=== PATIENT | female | born 1945 | race Caucasian/White ===

== ENCOUNTER 2020-03-18 18:03 | Emergency (ER) | payer MEDICARE, OTHER ==
[2020-03-18 19:18] LABS: BASOPHIL 0.5 % (0-2); EOSINOPHIL 2.3 % (0-7); HCT 37.7 % (37.0-47.0); HGB 12.1 g/dl (12.5-16.0); LYMPHOCYTE 22.3 % (15-48); MCH 29.9 pg (25.0-31.0); MCHC 32.1 g/dL (32.0-36.0); MCV 93.1 fL (78.0-100.0); MONOCYTE 9.6 % (0-12); MPV 10.2 fL (6.0-9.5); NRBC 0; PLT 235 K/uL (150-400); RBC 4.05 M/uL (4.20-5.40); WBC 6.6 K/uL (4.0-10.5)
[2020-03-18 19:35] LABS: ALBUMIN 3.5 g/dL (3.4-5.0); BILIRUBIN - TOTAL 0.3 mg/dL (0.2-1.0); BUN/CREAT RATIO (CALC) 24.2 RATIO; CREATININE 2.89 mg/dL (0.51-0.95); GLOBULIN (CALCULATION) 3.7 g/dL; POTASSIUM 4.3 mmol/L (3.5-5.1); TOTAL PROTEIN 7.2 g/dL (6.4-8.2)
== END 2020-03-18 22:59 | disposition home or self-care (01) ==
LOC: FER 18:03
PROVIDERS: Emergency Medicine
DX: U07.1 COVID-19 (principal); N17.9 Acute kidney failure, unspecified; I10 Essential (primary) hypertension; Z88.0 Allergy status to penicillin; Z88.1 Allergy status to other antibiotic agents; Z88.6 Allergy status to analgesic agent
CPT/HCPCS: 36415; 36600; 71045; 80053; 82803; 85025; J7030; J7050; M0239

== ENCOUNTER 2020-03-25 13:00 | Emergency (ER) | payer MEDICARE, OTHER ==
[2020-03-25 14:25] LABS: BASOPHIL 0.4 % (0-2); EOSINOPHIL 0.7 % (0-7); HCT 35.7 % (37.0-47.0); HGB 11.3 g/dl (12.5-16.0); LYMPHOCYTE 17.1 % (15-48); MCH 29.7 pg (25.0-31.0); MCHC 31.7 g/dL (32.0-36.0); MCV 93.9 fL (78.0-100.0); MONOCYTE 3.7 % (0-12); NEUTROPHIL 77.4 % (41-80); NRBC 0; PLT 270 K/uL (150-400); RDW 12.5 % (11.5-14.0); WBC 10.7 K/uL (4.0-10.5)
[2020-03-25 14:37] LABS: BILIRUBIN NEGATIVE (NEGATIVE); BLOOD NEGATIVE Ery/uL (NEGATIVE); CLARITY CLEAR (CLEAR); COLOR YELLOW (YELLOW); GLUCOSE (U) NORMAL (NORMAL); LEUKOCYTES NEGATIVE Leu/uL (NEGATIVE); NITRITE NEGATIVE (NEGATIVE); PROTEIN TRACE (LOW) mg/dL (NEGATIVE); SPECIFIC GRAVITY >=1.030 (1.001-1.030); UROBILINOGEN 0.2 mg/dL (0.2-1.0); pH 5.5 (5.0-9.0)
[2020-03-25 14:43] LABS: BACTERIA TRACE
[2020-03-25 14:43] LABS: ALBUMIN 3.6 g/dL (3.4-5.0); BILIRUBIN - TOTAL 0.7 mg/dL (0.2-1.0); BUN/CREAT RATIO (CALC) 27.6 RATIO; CREATININE 1.52 mg/dL (0.51-0.95); GLOBULIN (CALCULATION) 3.7 g/dL; POTASSIUM 4.5 mmol/L (3.5-5.1); TOTAL PROTEIN 7.3 g/dL (6.4-8.2)
== END 2020-03-25 19:05 | disposition home or self-care (01) ==
LOC: FER 13:00
PROVIDERS: Emergency Medicine
DX: U07.1 COVID-19 (principal); N17.9 Acute kidney failure, unspecified; E86.0 Dehydration; Z88.0 Allergy status to penicillin; Z88.6 Allergy status to analgesic agent; Z88.8 Allergy status to other drugs, medicaments and biological substances
CPT/HCPCS: 36415; 80053; 81001; 85025; 99284; J7030